=== PATIENT | male | born 1935 | race Caucasian/White ===

== ENCOUNTER 2017-12-11 16:11 | Emergency (ER) | payer OTHER ==
[~2017-12-11] VITALS: Ht 170.2 cm; Wt 81.6 kg
[2017-12-11 17:49] LABS: microscopic required? NO
[2017-12-11 18:16] LABS: BASOPHIL % 0.4 % (0-2); PLATELET COUNT 273 x10^3mcL (130-400); RED CELL DISTRIBUTION WIDTH 13.2 % (11.5-14.5)
[2017-12-11 18:22] LABS: UA SPECIFIC GRAVITY 1.015 (1.005-1.035); urine erythrocyte NEGATIVE (NEGATIVE)
[2017-12-11 18:31] LABS: CALCIUM 8.6 mg/dL (8.5-10.1); CARBON DIOXIDE 26.5 mmol/L (21-32); CHLORIDE SERUM 107 mmol/L (98-107); GLUCOSE SERUM 106 mg/dL (74-106); POTASSIUM SERUM 3.9 mmol/L (3.5-5.1); SODIUM SERUM 144 mmol/L (136-145)
[2017-12-11 18:36] LABS: ALBUMIN 3.7 g/dL (3.4-5.0); ALKALINE PHOSPHATASE 84 U/L (46-116); ALT/SGPT 24 U/L (16-63); AST/SGOT 18 U/L (15-37); BILIRUBIN TOTAL 0.36 mg/dL (0.20-1.00); TOTAL PROTEIN, SERUM 7.2 g/dL (6.4-8.2)
[2017-12-11 19:26] VITALS: BP 191/94
== END 2017-12-11 19:26 | disposition home or self-care (01) ==
LOC: ED 16:11
PROVIDERS: Emergency Medicine
DX: R53.1 Weakness (principal); I10 Essential (primary) hypertension; E11.65 Type 2 diabetes mellitus with hyperglycemia
CPT/HCPCS: J3490; J7030

== ENCOUNTER 2018-02-27 10:15 | Emergency (ER) | payer OTHER ==
[~2018-02-27] VITALS: Ht 170.2 cm; Wt 82.1 kg
[2018-02-27 10:26] VITALS: Ht 170.2 cm; Wt 82.1 kg
[2018-02-27 10:59] LABS: BASOPHIL % 0.4 % (0-2); PLATELET COUNT 247 x10^3mcL (130-400); RED CELL DISTRIBUTION WIDTH 12.7 % (11.5-14.5)
[2018-02-27 11:20] LABS: CALCIUM 8.8 mg/dL (8.5-10.1); CARBON DIOXIDE 27.3 mmol/L (21-32); CHLORIDE SERUM 107 mmol/L (98-107); CREATININE SERUM 1.1 mg/dL (0.7-1.3); GLUCOSE SERUM 172 mg/dL (74-106); POTASSIUM SERUM 4.7 mmol/L (3.5-5.1); SODIUM SERUM 143 mmol/L (136-145)
[2018-02-27 11:24] LABS: ALBUMIN 3.7 g/dL (3.4-5.0); ALKALINE PHOSPHATASE 80 U/L (46-116); ALT/SGPT 24 U/L (16-63); AST/SGOT 16 U/L (15-37); BILIRUBIN TOTAL 0.75 mg/dL (0.20-1.00); CHOLESTEROL 167 mg/dL (<200); CHOLESTEROL/HDL RATIO 3.8; HDL CHOLESTEROL 44 mg/dL (40-60); LIPASE 173 IU/L (73-393); TOTAL PROTEIN, SERUM 7.2 g/dL (6.4-8.2); TRIGLYCERIDES 150 mg/dL (<150)
[2018-02-27 11:35] LABS: FREE T4 1.09 ng/dL (0.76-1.46); FREE THYROXINE INDEX 3.2 ug/dL (1.4-4.5); T4(THYROXINE) 8.6 ug/dL (4.7-13.3)
[2018-02-27 12:42] LABS: microscopic required? NO
[2018-02-27 13:00] LABS: urine erythrocyte NEGATIVE (NEGATIVE)
[2018-02-27 14:45] VITALS: BP 181/77
== END 2018-02-27 14:45 | disposition home or self-care (01) ==
LOC: ED 10:15
PROVIDERS: Specialist
DX: R10.9 Unspecified abdominal pain (principal); I10 Essential (primary) hypertension; E11.9 Type 2 diabetes mellitus without complications
CPT/HCPCS: 83880; 84439; J1885; J2270; J2405; J7030; Q0092

== ENCOUNTER 2018-10-30 04:01 | Inpatient (IN) | payer OTHER ==
[~2018-10-30] VITALS: Ht 170.2 cm; Wt 82.7 kg
[2018-10-30 04:08] VITALS: Ht 170.2 cm; Wt 82.7 kg
--- NOTE | 2018-10-30 04:26 | NUR ---
PT C/O HIGH BLOOD PRESSURE X2 MONTHS WITH THE HIGHEST READING TODAY PER PT HE TOOK HIS BP MEDS AROUND 2200 LAST NIGHT BEFORE BED HOWEVER WOKE UP FROM HIS SLEEP THIS AM D/T JAW PAIN AND PALPITATIONS PT STS HIS PMD DOUBLED HIS NORMAL DOSE OF BP MEDS X2 MONTHS AGO HOWEVER BP HAS NOT IMPROVED PT AAOX4 RESPS E/U SKIN PINK DRY AND WARM PT DENIES ANY DIZZINESS AND/OR PAIN AT THIS TIME AT BEDSIDE PT GOWNED AND AWAITING MSE
--- NOTE | 2018-10-30 05:00 | NUR ---
LAB AT BEDSIDE
--- NOTE | 2018-10-30 05:15 | NUR ---
PT AMBULATORY WITH STEADY GAIT TO XRAY
[2018-10-30 05:23] LABS: BASOPHIL % 0.4 % (0-2); PLATELET COUNT 222 x10^3mcL (130-400); RED CELL DISTRIBUTION WIDTH 13.4 % (11.5-14.5)
[2018-10-30 05:30] LABS: CALCIUM 8.8 mg/dL (8.5-10.1); CARBON DIOXIDE 26.2 mmol/L (21-32); CHLORIDE SERUM 104 mmol/L (98-107); CREATININE SERUM 1.1 mg/dL (0.7-1.3); GLUCOSE SERUM 156 mg/dL (74-106); POTASSIUM SERUM 4.5 mmol/L (3.5-5.1); SODIUM SERUM 139 mmol/L (136-145)
[2018-10-30 05:35] LABS: ALBUMIN 3.5 g/dL (3.4-5.0); ALKALINE PHOSPHATASE 83 U/L (46-116); ALT/SGPT 23 U/L (16-63); AST/SGOT 17 U/L (15-37); BILIRUBIN TOTAL 0.6 mg/dL (0.20-1.00); CHOLESTEROL 174 mg/dL (<200); HDL CHOLESTEROL 43 mg/dL (40-60); TOTAL PROTEIN, SERUM 7.4 g/dL (6.4-8.2); TRIGLYCERIDES 137 mg/dL (<150)
--- NOTE | 2018-10-30 06:01 | NUR ---
PT IN POSITION OF COMFORT RESPS E/U AT BEDSIDE WILL CONTINUE TO MONITOR
[2018-10-30] MEDS ORDERED: LISINOPRIL2.5 MG PO (06:03)
[2018-10-30] MEDS ORDERED: METFORMIN HYDR500 M1 PO (06:04)
[2018-10-30] MEDS ORDERED: TAMSULOSIN HYD0.4 M1 PO (06:04)
[2018-10-30] MEDS ORDERED: CLARITIN-D 12HR1 T12 (06:06)
[2018-10-30] MEDS ORDERED: TOPROL XL25 MG PO (06:06)
--- NOTE | 2018-10-30 07:10 | NUR ---
REPORT RECEIVED FROM MARIE VÁSQUEZ. PT AAOX4, RESP E/U, NO ACUTE DISTRESS NOTED AT THIS TIME. PT STS NO PAIN. CALL LIGHT WITH IN REACH.
--- NOTE | 2018-10-30 07:11 | NUR ---
REPORT GIVEN TO VINNIE SALAZAR WHO IS RESUMING CARE OF PT AT THIS TIME
--- NOTE | 2018-10-30 08:20 | NUR ---
REPORT GIVEN TO MARIE JOHNSON ON TELE UNIT TO ASSUME CARE OF PT.
--- NOTE | 2018-10-30 09:00 | NUR ---
PATIENT ARRIVED FROM ER VIA WHEELCHAIR. PATIENT DENIES CHEST PAIN, POWERS, DIZZINESS. TELE MONITOR 18 APPLIED, NSR. TRACE OF EDEMA NOTED TO RLE, BLE COOL TO TOUCH. LUNG SOUNDS CTA. BOWEL SOUNDS ACTIVEX4, PATIENT STATES PREVIOUS STOOL WAS FORMED. PATIENT PLACE ON BEDREST. IV TO LAC SALINE LOCK, CDI AND PATENT. CALL LIGHT WITHIN REACH, BED IN LOW POSITION, WILL CONTINUE TO MONITOR PATIENT.
--- NOTE | 2018-10-30 10:00 | NUR ---
DR BECKHAM AWARE PATIENTS BP WAS 181/74, MAP 102, HR 58. DR BECKHAM ORDER FOR HOME MEDICATIONS TO BE CONTINUE. DR BECKHAM WILL PLACE ORDER FOR A CARDIAC CONSULT. PATIENT IS CURRENTLY ASYMPTOMATIC. DENIES CHEST PAIN, POWERS, DIZZINESS. WILL CONTINUE TO MONITOR PATIENT FOR CHANGES, CALL LIGHT WITHIN REACH, BED IN LOW POSITION. NO FURTHERS ORDERS AT THIS TIME.
[2018-10-30 10:01] VITALS: BP 181/74
[2018-10-30 10:59] LABS: MAGNESIUM 2.2 mg/dL (1.8-2.4)
[2018-10-30 14:02] VITALS: BP 168/70
--- NOTE | 2018-10-30 15:00 | NUR ---
DR BECKHAM AWARE PATIENT TROPONIN WAS 2.889, PATIENT BP:160/62 HR 65 MAP 81. PATIENT IS ASYMPTOMATIC AT THIS TIME. DENIES CHEST PAIN, POWERS, DIZZINESS. DR BECKHAM ORDER FOR PATIENT TO BE PLACED ON HEPARIN DRIP PROTOCOL. WILL CARRY OUT ORDERS AT THIS TIME AND MONITOR PATIENT FOR CHANGES.
--- NOTE | 2018-10-30 15:25 | NUR ---
NOTIFIED LAB FOR STAT PT,PTT.
--- NOTE | 2018-10-30 16:27 | NUR ---
DR MARTÍNEZ AWARE PATIENT BP WAS 195/69 HR 89, PATIENT DENIES CHEST PAIN, POWERS, AND DIZZINESS. DR MARTÍNEZ GAVE TELEPHONE/READBACK ORDERS FOR LABETALOL 10MG IVP Q4HP FOR BP>180 AND HR >70. WILL CARRY OUT ORDERS AND ADMINISTER MEDS WHEN AVAILABLE.
--- NOTE | 2018-10-30 16:48 | NUR ---
PURIFYING PLANT OPERATOR AWARE LBETOLOL WILL BE GIVEN IVP.
[2018-10-30 16:52] VITALS: BP 195/69
--- NOTE | 2018-10-30 17:35 | NUR ---
DR MARTÍNEZ AWARE LABETALOL WAS GIVEN AND BP REMAIN ELEVATED; BP 187/[address] MARTÍNEZ AWARE PATIENT HAD PVC COUPLETS AND BIGEMENY. DR MRATÍNEZ GAVE TELEPHONE/READBACK ORDERS FOR VASOTEC 0.625MG IVP Q6HR FOR SBP> 180 HR >70. WILL CARRY OUT ORDERS AND CONTINUE TO MONITOR PATIENT.
--- NOTE | 2018-10-30 18:00 | NUR ---
LEARNING AND DEVELOPMENT ASSISTANT AWARE PATIENT WILL RECEIVE VASOTEC IVP.
[2018-10-30 18:50] VITALS: BP 147/77
--- NOTE | 2018-10-30 18:50 | NUR ---
REASSESSED PATIENT VITAL SIGNS: BP:147/77 MAP 93 HR 78. PATIENT DENIES CHEST PAIN, POWERS, DIZZINESS. PATIENT IS STABLE AT THIS TIME. PATIENT ON HEPARIN DRIP PROTOCOL IV INFUSING TO LAC AT 10ML/HR. IV SITE CDI, PATENT. CALL LIGHT WITHIN REACH, BED IN LOW POSITION WILL CONTINUE TO MONITOR.
--- NOTE | 2018-10-30 20:00 | NUR ---
PT A/A/O X4. DENIES DIZZINESS AND HEADACHE. BREATH SOUNDS CLEAR. BREATHING EVEN AND UNLABORED ON ROOM AIR. DENIES CHEST PAIN AND PRESSURE. BOWEL SOUNDS ACTIVE. NO C/O N/V AND ABD PAIN. PT C/O BACK PAIN. GAVE PT NORCO PO. PT TOLERATED IT WELL. TRACE EDEMA NOTED ON BLE. IV INTACT ON THE LAC INFUSING WITH HEPARIN DRIP WITH THE RATE OF 1000 UNITS/HR. MADE PT COMFORTABLE. PLACED CALL LIGHT WITH IN REACH. WILL CONTINUE TO MONITOR.
[2018-10-30 21:25] VITALS: BP 136/60
[2018-10-31 01:35] VITALS: BP 133/56
--- NOTE | 2018-10-31 02:41 | NUR ---
PTT WAS 79.3. HEPARIN DRIP REDUCED FROM 1000 UNITS/HR TO 800 UNITS/HR BASED ON HEPARIN PROT. SPOKE WITH YEE NURSE PANEL MONITOR OF [facility] TO CONFIRM SCHEDULED PROCEDURE IN THERE HOSPITAL THAT IS 1100 IN PORTABLE IRRIGATION OPERATOR VIA PHONE. INFORMED YEE ABOUT PT BEING PICKED UP HERE IN 0700. WILL CONTINUE TO MONITOR.
[2018-10-31 05:16] VITALS: BP 152/67
[2018-10-31 06:08] VITALS: BP 152/67
[2018-10-31 07:11] LABS: BASOPHIL % 0.9 % (0-2); CALCIUM 8.8 mg/dL (8.5-10.1); CARBON DIOXIDE 23.2 mmol/L (21-32); CHLORIDE SERUM 105 mmol/L (98-107); CREATININE SERUM 0.9 mg/dL (0.7-1.3); GLUCOSE SERUM 144 mg/dL (74-106); PLATELET COUNT 212 x10^3mcL (130-400); POTASSIUM SERUM 3.8 mmol/L (3.5-5.1); RED CELL DISTRIBUTION WIDTH 13.6 % (11.5-14.5); SODIUM SERUM 139 mmol/L (136-145)
--- NOTE | 2018-10-31 07:17 | NUR ---
PT WAS DC'D VIA [facility]AN[facility] BY [facility] TO [facility]. GAVE REPORT TO MONTY OF DRAPERY SEAMSTRESS. PT HEPLOCKED ON THE LAC. PT AWAKE WITH NO C/O PAIN AND DISCOMFORT THUS FAR. PT BELONGINGS WITH FAMILY.
== END 2018-10-31 07:06 | disposition short-term general hospital (02) | DRG 282 ==
LOC: ED 04:01 → DU 06:52
PROVIDERS: Emergency Medicine; ADMIT Internal Medicine
DX: I21.4 Non-ST elevation (NSTEMI) myocardial infarction (principal); I24.9 Acute ischemic heart disease, unspecified; E11.65 Type 2 diabetes mellitus with hyperglycemia; R09.1 Pleurisy; I10 Essential (primary) hypertension; Z68.28 Body mass index [BMI] 28.0-28.9, adult; Z79.84 Long term (current) use of oral hypoglycemic drugs; Z79.4 Long term (current) use of insulin; I25.10 Atherosclerotic heart disease of native coronary artery without angina pectoris
CPT/HCPCS: 82962; J1644; J3490

== ENCOUNTER 2019-06-12 22:26 | Emergency (ER) | payer OTHER ==
[~2019-06-12] VITALS: Ht 170.2 cm; Wt 83.9 kg
[~2019-06-12 22:26] MED LIST: CLARITIN-D 12HR1 T12; LISINOPRIL2.5 MG PO; METFORMIN HYDR500 M1 PO; TAMSULOSIN HYD0.4 M1 PO; TOPROL XL25 MG PO
[2019-06-12 22:49] VITALS: Ht 170.2 cm; Wt 83.9 kg
[2019-06-13 01:02] VITALS: BP 137/53
== END 2019-06-13 01:02 | disposition home or self-care (01) ==
LOC: ED 22:26
DX: I16.0 Hypertensive urgency (principal); E11.9 Type 2 diabetes mellitus without complications

== ENCOUNTER 2020-05-05 22:15 | Emergency (ER) | payer OTHER ==
[~2020-05-05] VITALS: Ht 170.2 cm; Wt 78.5 kg
[2020-05-05 22:23] VITALS: Ht 170.2 cm; Wt 78.5 kg
[2020-05-06 00:04] LABS: microscopic required? NO
[2020-05-06 00:25] LABS: urine erythrocyte NEGATIVE (NEGATIVE)
[2020-05-06 00:42] LABS: BASOPHIL % 0.7 % (0-2); PLATELET COUNT 212 x10^3mcL (130-400); RED CELL DISTRIBUTION WIDTH 12.8 % (11.5-14.5)
[2020-05-06 00:49] LABS: CALCIUM 8.8 mg/dL (8.5-10.1); CARBON DIOXIDE 22.6 mmol/L (21-32); CHLORIDE SERUM 106 mmol/L (98-107); CREATININE SERUM 1.1 mg/dL (0.7-1.3); GLUCOSE SERUM 146 mg/dL (74-106); POTASSIUM SERUM 4.4 mmol/L (3.5-5.1); SODIUM SERUM 139 mmol/L (136-145)
[2020-05-06 00:56] VITALS: BP 149/56
[2020-05-06 00:56] LABS: ALKALINE PHOSPHATASE 83 U/L (46-116); ALT/SGPT 21 U/L (16-63); AST/SGOT 18 U/L (15-37); BILIRUBIN TOTAL 0.51 mg/dL (0.20-1.00); HDL CHOLESTEROL 41 mg/dL (40-60); MAGNESIUM 1.9 mg/dL (1.8-2.4); TOTAL PROTEIN, SERUM 6.7 g/dL (6.4-8.2)
[2020-05-06 00:57] LABS: ALBUMIN 3.3 g/dL (3.4-5.0)
[2020-05-06 00:58] LABS: CHOLESTEROL 74 mg/dL (<200)
== END 2020-05-06 00:56 | disposition home or self-care (01) ==
LOC: ED 22:15
PROVIDERS: Emergency Medicine
DX: I10 Essential (primary) hypertension (principal); E11.9 Type 2 diabetes mellitus without complications; E78.00 Pure hypercholesterolemia, unspecified; Z98.890 Other specified postprocedural states
CPT/HCPCS: 82962; Q0092